=== PATIENT | female | born 1995 | race Caucasian/White ===

== ENCOUNTER → 2017-04-13 | Outpatient (CLI) | payer OTHER ==
[~2017-04-13] MED LIST: ACETGRA; ADVAIR; ALBU17IN2; CLINDAMYCIN 75 MG/5 ML; IBUP600T; KEFL500C17 PO; NORCOTAB PO; SING4CHW7
[2017-04-13 19:11] LABS: BASO % 0.2 % (0.0-1.0); EOS % 0.6 % (0.0-3.0); LARGE UNSTAINED CELL # 0.1 K/mm3 (0.0-0.4); LARGE UNSTAINED CELL % 0.6 % (0.0-4.0); LYMPH # 1.5 K/mm3 (1.5-6.5); MEAN CORPUSCULAR HEMOGLOBIN 29.3 pg (27.0-33.0); MEAN CORPUSCULAR HGB CONC 33.3 g/dl (32.0-36.5); MEAN CORPUSCULAR VOLUME 88.1 fl (80.0-96.0); MONO # 0.3 K/mm3 (0.0-0.8); MONO % 3.2 % (0.0-5.0); NEUTROPHILS # 7.4 K/mm3 (1.8-7.7); NEUTROPHILS % 79.4 % (36.0-66.0); PLATELET COUNT, AUTOMATED 285 k/mm3 (150-450); RED CELL DISTRIBUTION WIDTH 14.5 % (11.5-14.5); WHITE BLOOD COUNT 9.4 K/mm3 (4.0-10.0)
[2017-04-14 11:55] LABS: HBsAg Prenatal NEGATIVE (NEGATIVE)
== END ==
LOC: M SMT 13:36
PROVIDERS: ATTEND Advanced Practice Midwife
DX: Z34.82 Encounter for supervision of other normal pregnancy, second trimester (principal)

== ENCOUNTER → 2017-05-05 | Outpatient (CLI) | payer OTHER ==
[2017-05-05 13:18] LABS: BASO % 0.3 % (0.0-1.0); EOS % 0.5 % (0.0-3.0); LARGE UNSTAINED CELL # 0.1 K/mm3 (0.0-0.4); LARGE UNSTAINED CELL % 0.9 % (0.0-4.0); LYMPH # 1.9 K/mm3 (1.5-6.5); LYMPH % 20.5 % (24.0-44.0); MEAN CORPUSCULAR HEMOGLOBIN 29.7 pg (27.0-33.0); MEAN CORPUSCULAR HGB CONC 33.9 g/dl (32.0-36.5); MEAN CORPUSCULAR VOLUME 87.7 fl (80.0-96.0); MONO # 0.4 K/mm3 (0.0-0.8); NEUTROPHILS # 6.7 K/mm3 (1.8-7.7); NEUTROPHILS % 73.8 % (36.0-66.0); PLATELET COUNT, AUTOMATED 265 k/mm3 (150-450); RED CELL DISTRIBUTION WIDTH 14.5 % (11.5-14.5); WHITE BLOOD COUNT 9.1 K/mm3 (4.0-10.0)
--- NOTE | 2017-05-05 16:57 | REP ---
Obstetric sonography: History: Supervision of for anatomy. Findings: Scanning through the gravid uterus demonstrates a viable single intrauterine gestation in a breech lie. motion is observed and heart rate is recorder 147 beats per minute. Posterior grade zero placenta is seen without evidence of previa or abruption. Amniotic fluid is subjectively normal. Closed cervical length is 3.4 cm. No extrauterine abnormality is observed. No anomaly is seen. Left ventricular cardiac outflow tract view and spine views are less than optimal due to position. The following additional anatomic structures are identified and felt to be sonographically unremarkable: cranium, choroid plexus, cavum, cerebellum posterior fossa, face and profile, lungs, four-chamber heart with right ventricular outflow tract view, diaphragm, left-sided stomach, abdominal wall cord insertion, three-vessel umbilical cord, kidneys and bladder, upper and lower extremities. Biometry chart: BPD 5.7 cm 23 weeks 3 days Head circumference 22.1 cm 24 weeks 1 day Abdominal circumference 21.0 cm 25 weeks 4 days Femur length 4.6 cm 25 weeks 0 days Humeral length 4.3 cm 25 weeks 4 days Cerebellar diameter 2.6 cm 23 weeks 3 days HC/AC ratio normal 1.06, cephalic index normal 0.69, estimated weight 769 grams 1 pound 11 ounces 68th percentile for 24 weeks 2 days. Impression: Viable single intrauterine gestation at 24 weeks 2 days by today's composite criteria. WALLY by today's sonography 08/23/2017. cardiac left ventricular outflow tract view and spine views less than optimally achieved today due to position. Breech lie. Signed by Dong Lowry MD 05/05/2017 05:12 P
== END ==
LOC: M SMT 08:20
PROVIDERS: ATTEND Advanced Practice Midwife
DX: Z34.82 Encounter for supervision of other normal pregnancy, second trimester (principal); Z3A.24 24 weeks gestation of pregnancy

== ENCOUNTER 2017-05-29 23:24 | Emergency (ER) | payer OTHER ==
[~2017-05-29] VITALS: Ht 165.1 cm; Wt 95.5 kg
[~2017-05-29 23:24] MED LIST changes: -KEFL500C17 PO; -NORCOTAB PO
[2017-05-30 00:39] VITALS: BP 136/69
[2017-05-30] MEDS ORDERED: NORCO, ANEXSIA 5/325MG TABLET (HYDROcodone/ACETAMINOPHEN) PO ONE (00:45)
[2017-05-30] MEDS ORDERED: KEFL500C17 PO (00:58)
[2017-05-30] MEDS ORDERED: NORCOTAB PO (00:58)
[2017-05-30] MEDS ORDERED: CEPHALEXIN 500 MG CAP PO ONE (01:00)
== END 2017-05-30 01:06 | disposition home or self-care (01) ==
LOC: M ED 23:24
DX: O99.89 Other specified diseases and conditions complicating pregnancy, childbirth and the puerperium (principal); K04.7 Periapical abscess without sinus; F41.9 Anxiety disorder, unspecified; F32.9 Major depressive disorder, single episode, unspecified; J45.909 Unspecified asthma, uncomplicated; Z3A.24 24 weeks gestation of pregnancy; Z87.891 Personal history of nicotine dependence; Z88.0 Allergy status to penicillin

== ENCOUNTER 2017-08-02 17:04 | Outpatient (CLI) | payer OTHER ==
[~2017-08-02 17:04] MED LIST changes: +KEFL500C17 PO; +NORCOTAB PO
[2017-08-02 17:32] VITALS: BP 103/60
--- NOTE | 2017-08-02 18:54 | IPNPDOC ---
Text Note Date of Service The patient was seen on 08/02/17. NOTE 21 yo at 36 6/7 weeks gestation arrived to L and D with complaints of decreased movement since last night and leaking of fluid times one at 1600 when she went to the bathroom.Patient reports back pain to her tailbone that she has had throughout the entire . 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 Last ate a bagel at 1200, had one water bottle today. Denies bleeding. Patient states she has felt the baby move since she has been on the floor. O: VSS FHR: 140, moderate variability, + accels, + variables CTX: Infrequent irregular contractions SSE: - pooling, -nitrazine, - ferning SVE: Very posterior, unable to assess due to maternal guarding A: 36 6/7 weeks gestation. Not in labor. Category 1 tracing. P: Patient able to be discharged home, encouraged to keep appt this , edu on proper nutrition, FKC, supportive shoes, maternity belt, chiropractor, increase fluids. Susi Kwong CNM Aug 02, 2017 18:54
== END 2017-08-02 18:55 | disposition home or self-care (01) ==
LOC: M LDO 17:04
PROVIDERS: ATTEND Advanced Practice Midwife
DX: O26.893 Other specified pregnancy related conditions, third trimester (principal); Z3A.36 36 weeks gestation of pregnancy; N89.8 Other specified noninflammatory disorders of vagina; M54.5 Low back pain; Z88.0 Allergy status to penicillin

== ENCOUNTER 2017-08-23 15:22 | Inpatient (IN) | payer MEDICAID, OTHER ==
[~2017-08-23] VITALS: Ht 157.5 cm; Wt 101.0 kg
[2017-08-23 15:38] VITALS: BP 124/74
[2017-08-23] MEDS ORDERED: PRENTAB9 PO (16:32)
[2017-08-23 17:04] VITALS: BP 109/57
[2017-08-23] MEDS: miSOPROStol 50 MCG 1/2 TAB (S0191) PO SCH ×2 (17:05→21:06)
[2017-08-23 17:07] LABS: MEAN CORPUSCULAR HEMOGLOBIN 26.4 pg (27.0-33.0); MEAN CORPUSCULAR HGB CONC 31.8 g/dl (32.0-36.5); MEAN CORPUSCULAR VOLUME 83.1 fl (80.0-96.0); PLATELET COUNT, AUTOMATED 281 10^3/uL (150-450); RED CELL DISTRIBUTION WIDTH 15.8 % (11.5-14.5); WHITE BLOOD COUNT 11.3 10^3/uL (4.0-10.0)
--- NOTE | 2017-08-23 17:43 | HPE ---
DATE OF ADMISSION: 08/23/2017 HISTORY: A 22-year-old G2, P1 female at 39-6/7 weeks gestation by 14-week ultrasound, estimated date of confinement (EDC) of 08/24/2017, presents for elective induction of labor. She has contractions about every 10 minutes. She denies vaginal bleeding. COURSE: The patient initiated care at 17 weeks gestation on 03/19/2017. Her blood pressure is 124/74, weight 197 pounds. course was essentially unremarkable. OBSTETRICAL HISTORY: July 2016, a 39-plus week vaginal delivery of an 8-pound 3-ounce male . Patient had some sort of allergic reaction during delivery. It was unknown as to what caused it. MEDICAL HISTORY: Depression after last delivery. SURGICAL HISTORY: None. ALLERGIES: Uncertain etiology. SOCIAL HISTORY: The father of the baby is involved with the patient and lives in [place], [place]. Denies cigarettes, alcohol, or drug use during . FAMILY HISTORY: Noncontributory. PHYSICAL EXAMINATION:: Blood pressure 124/74, pulse 84. She is in no apparent distress. Head exam normal. Lungs clear. Heart regular rate and rhythm. Abdomen nontender, gravid. heart tones, category 1 contractions every 5-10 minutes. Sterile vaginal exam: 1-2 cm, 50%, -2 station, vertex. LABORATORY DATA: Blood type O positive, Rubella immune, RPR nonreactive, hepatitis B and C negative, HIV negative. GBS positive on 08/02/2017 ASSESSMENT: A 22-year-old G2, P1 female at 39-6/7 weeks gestation presents for labor induction. Risks of induction were discussed. Patient was admitted on 08/23/2017.
[2017-08-23 18:18] VITALS: BP 110/57
[2017-08-23 19:13] VITALS: BP 108/59
[2017-08-23 21:08] VITALS: BP 102/59
[2017-08-23] MEDS ORDERED: OXYTOCIN DRIP 30 UNITS in APPROPRIATE DILUENT 1 EA IV SCH (22:30)
[2017-08-23] MEDS: LR 1,000 ML IV SCH (23:04)
[2017-08-24] VITALS (38 sets, daily range): BP systolic 86–144; BP diastolic 49–70
[2017-08-24] MEDS ORDERED: FENTANYL 2MCG/ML ROPIVACAINE 0.2% IN 0.9% NACL 200ML IVBAG As Ordered ONE (03:07)
[2017-08-24] MEDS ORDERED: FENTANYL/ROPIVACAINE/NACL BAG 200 ML EPIDURAL SCH (04:15)
[2017-08-24] MEDS ORDERED: NALOXONE INJ 0.4 MG/1 ML VIAL (J2310) IV PRN (04:15)
[2017-08-24] MEDS ORDERED: diphenhydrAMINE INJ 50MG/ML VIAL (J1200) IV PRN (04:15)
[2017-08-24] MEDS ORDERED: EPIDURAL/PCA KEYS XX PRN (04:15)
[2017-08-24] MEDS ORDERED: LACTATED RINGER'S 1000 ML IV PRN (04:15)
[2017-08-24] MEDS ORDERED: REFRIGERATOR IV KEYS XX PRN (04:15)
[2017-08-24] MEDS ORDERED: ONDANSETRON 4MG/2ML VIAL (J2405) IV PRN (04:15)
[2017-08-24] MEDS ORDERED: EPIDURAL COMMENT XX SCH (04:15)
[2017-08-24] MEDS: ePHEDrine SULFATE 25 MG/5 ML(5MG/ML) SYRINGE IV PRN ×3 (04:36→05:02)
[2017-08-24] MEDS: LR 1,000 ML IV SCH (06:29)
[2017-08-24] MEDS ORDERED: CEFAZOLIN SOD 1 GM in APPROPRIATE DILUENT 1 EA IV SCH (06:30)
--- NOTE | 2017-08-24 08:21 | DNPDOC ---
[facility] Delivery Note Delivery Note DATE OF DELIVERY: 08/24/2017 PREDELIVERY DIAGNOSIS: 40-0/7 weeks' gestation and labor. POST DELIVERY DIAGNOSIS: Delivered. PROCEDURE: Vaginal delivery. CHIEF ENGINEER [employer]: Rich Kwong CNM. Benedict Agrawal, DEEPAME-2. ANESTHESIA: Epidural. ESTIMATED BLOOD LOSS: 300 mL. FINDINGS: 8 pound 9 ounce male infant, Score 8/9, no nuchal cord. DELIVERY SUMMARY: Patient is a 22-year-old 2 now para 2-0-0-2 who was admitted to labor and delivery for social induction at 0730 hours on 2016. Patient was positive for group B strep and received Ancef at 2300 and 0645. Patient received misoprostol and Pitocin to assist with delivery. Went into labor at 0300 hour. This spontaneous rupture membranes at 0540. Viable male child delivered at 0730 with MARCELLUS presentation. Anterior shoulder delivered followed by posterior. No shoulder dystocia. No nuchal cord. was warmed and dried and placed on mother's abdomen. Cord was double clamped and cut by father of the by my direction , three-vessel cord was noted. Apgars 8 and 9. weight 8 lbs. 9 oz, 3890 g. Short cord was noted. Placenta delivered at approximately 0737. Fundus was firm and massaged. IV Pitocin bolus was started. Perineum was noted to have a small mucosal laceration. Repaired at 0754 with one 3-0 running suture. Estimated blood loss 300 mL. A sponge, sharp and instrument count was performed and correct. GME ATTESTATION GME ATTESTATION My faculty preceptor for this patient encounter was physically present during the encounter and was fully available. All aspects of the patient interview, examination, medical decision making process, and medical care plan development were reviewed and approved by the faculty preceptor. The faculty preceptor is aware and concurs with the plan as stated in the body of this note and will attest to such by his/her cosignature. BENEDICT AGRAWAL DO Aug 24, 2017 08:21 Susi Kwong CNM Aug 24, 2017 09:27
[2017-08-24] MEDS ORDERED: METHYLERGONOVINE MALEATE 0.2 MG TAB PO PRN (08:30)
[2017-08-24] MEDS ORDERED: DIBUCAINE 1% OINTMENT 30GM TOP PRN (08:30)
[2017-08-24] MEDS ORDERED: DOCUSATE SODIUM 100 MG CAP PO PRN (08:30)
[2017-08-24] MEDS ORDERED: MEASLES,MUMPS,RUBELLA VACCINE INJ (MMR-II) (90707) SC SCH (08:30)
[2017-08-24] MEDS ORDERED: RHOGAM 300 MCG (1500 IU) INJ (J2790) IM SCH (08:30)
[2017-08-24] MEDS: ACETAMINOPHEN 500 MG TAB PO PRN ×2 (08:31→18:17)
[2017-08-24] MEDS ORDERED: PRENATAL VITAMINS CHEWABLE TABLET PO SCH (09:00)
[2017-08-24] MEDS: SERTRALINE HCL 50 MG TAB PO SCH (09:00)
[2017-08-24] MEDS: PRENATAL VITAMINS CHEWABLE TABLET PO SCH (09:00)
[2017-08-24] MEDS ORDERED: OXYTOCIN DRIP 30 UNITS in APPROPRIATE DILUENT 1 EA IV SCH (09:26)
[2017-08-24] MEDS: IBUPROFEN 800 MG TAB PO PRN ×2 (12:12→19:54)
[2017-08-24] MEDS ORDERED: ACETAMINOPHEN 500 MG TAB As Ordered ONE (18:18)
[2017-08-25] MEDS: ACETAMINOPHEN 500 MG TAB PO PRN ×2 (00:29→12:06)
[2017-08-25] MEDS: IBUPROFEN 800 MG TAB PO PRN ×3 (05:20→21:00)
[2017-08-25 06:00] VITALS: BP 114/78
--- NOTE | 2017-08-25 06:41 | IPNPDOC ---
Text Note Date of Service The patient was seen on 08/25/17. NOTE Feels well. Bottle feeding. Voiding QS 97.8, 114/78 Breasts soft Fundus firm, NT, down 1 FB Lochia rubra light without odor Perineum well approximated without edema Legs negative. PPD #1 Routine care. Anticipate D/C in am VS,Fishbone, I+O VS, Fishbone, I+O Vital Signs Date Time Temp Pulse Resp B/P (MAP) Pulse Ox O2 Delivery O2 Flow Rate FiO2 08/25/17 06:00 97.8 80 20 114/78 (90) 99 Room Air I&O- Last 24 Hours up to 6 AM 08/25/17 06:00 Intake Total 3590.15 ml Output Total 1100 ml Balance 2490.15 ml Susi Kwong CNM Aug 25, 2017 06:41
[2017-08-25] MEDS: PRENATAL VITAMINS CHEWABLE TABLET PO SCH (07:53)
[2017-08-25] MEDS: SERTRALINE HCL 50 MG TAB PO SCH (07:53)
[2017-08-25 18:00] VITALS: BP 114/68
[2017-08-25 21:00] VITALS: BP 114/68
[2017-08-26] MEDS: ACETAMINOPHEN 500 MG TAB PO PRN (01:43)
[2017-08-26 05:57] VITALS: BP 105/67
[2017-08-26] MEDS: PRENATAL VITAMINS CHEWABLE TABLET PO SCH (08:00)
[2017-08-26] MEDS: SERTRALINE HCL 50 MG TAB PO SCH (08:00)
[2017-08-26] MEDS ORDERED: ACET50TA PO (12:16)
[2017-08-26] MEDS ORDERED: ZOLO50TA PO (12:16)
[2017-08-26] MEDS ORDERED: IBUP-1114 PO (12:16)
[2017-08-26] MEDS: IBUPROFEN 800 MG TAB PO PRN (13:18)
== END 2017-08-26 13:30 | disposition home or self-care (01) | DRG 560 ==
LOC: M LDI 15:22 → M OBS 08-24 10:10
PROVIDERS: ADMIT Specialist; ATTEND Specialist
PROC: 10E0XZZ Delivery of Products of Conception, External Approach (ICD-10-PCS; principal; 2017-08-24)
PROC: 0HQ9XZZ Repair Perineum Skin, External Approach (ICD-10-PCS; 2017-08-24)
DX: O99.824 Streptococcus B carrier state complicating childbirth (principal); Z37.0 Single live birth; Z3A.39 39 weeks gestation of pregnancy; O70.0 First degree perineal laceration during delivery

== ENCOUNTER 2018-07-01 17:53 | Emergency (ER) | payer OTHER, MEDICAID, SELFPAY ==
[2018-07-01] MEDS: LIDOCAINE VISCOUS 2% SOLN 15ML UDC MT (18:30)
== END 2018-07-01 18:35 | disposition home or self-care (01) ==
LOC: M ED 17:53
DX: K08.89 Other specified disorders of teeth and supporting structures (principal); J45.909 Unspecified asthma, uncomplicated; F31.9 Bipolar disorder, unspecified; F17.200 Nicotine dependence, unspecified, uncomplicated; Z88.0 Allergy status to penicillin; Z79.899 Other long term (current) drug therapy
CPT/HCPCS: 99282

== ENCOUNTER 2018-07-19 13:22 | Emergency (ER) | payer OTHER ==
[2018-07-19] MEDS: NS 1,000 ML IV (14:53)
[2018-07-19 15:14] LABS: BASO % 0.2 % (0.0-1.0); EOS % 0.2 % (0.0-3.0); HEMATOCRIT 45.7 % (36.0-47.0); HEMOGLOBIN 15.4 g/dl (12.0-15.5); IMMATURE GRANULOCYTE % 0.4 % (0-3.0); LYMPH # 2.6 10^3/uL (1.5-6.5); MEAN CORPUSCULAR HEMOGLOBIN 29.9 pg (27.0-33.0); MEAN CORPUSCULAR HGB CONC 33.7 g/dl (32.0-36.5); MEAN CORPUSCULAR VOLUME 88.7 fl (80.0-96.0); MONO % 6.4 % (0.0-5.0); NEUTROPHILS # 11.7 10^3/uL (1.8-7.7); NEUTROPHILS % 75.8 % (36.0-66.0); PLATELET COUNT, AUTOMATED 265 10^3/uL (150-450); RED BLOOD COUNT 5.15 10^6/uL (4.00-5.40); RED CELL DISTRIBUTION WIDTH 13.2 % (11.5-14.5); WHITE BLOOD COUNT 15.4 10^3/uL (4.0-10.0)
[2018-07-19] MEDS: GI COCKTAIL 50ML BTL(HYOSCYAMINE/MAALOX/LIDOCAINE VISCOUS)(1:3:1) PO (15:17)
[2018-07-19] MEDS: ASPIRIN 81 MG CHEW TABLET PO (15:17)
[2018-07-19 15:25] LABS: PROTHROMBIN TIME 14.4 SECONDS (12.1-14.4)
[2018-07-19 15:52] LABS: ALBUMIN 3.9 GM/DL (3.2-5.2); ALBUMIN/GLOBULIN RATIO 0.93 (1.00-1.93); ALKALINE PHOSPHATASE 132 U/L (45-117); ALT/SGPT 25 U/L (12-78); ANION GAP 9 MEQ/L (8-16); AST/SGOT 41 U/L (7-37); BILIRUBIN,DIRECT < 0.1 MG/DL (0.0-0.2); BILIRUBIN,TOTAL 0.8 MG/DL (0.2-1.0); BLOOD UREA NITROGEN 12 MG/DL (7-18); CALCIUM LEVEL 9.1 MG/DL (8.5-10.1); CARBON DIOXIDE LEVEL 23 MEQ/L (21-32); CHLORIDE LEVEL 103 MEQ/L (98-107); CK-MB VALUE MASS < 1.0 NG/ML (<3.6); CPK CREATINE PHOSPHOKINASE 185 U/L (26-192); CREATININE FOR GFR 0.74 MG/DL (0.55-1.30); GLOMERULAR FILTRATION RATE > 60.0 (>60); GLUCOSE, FASTING 75 MG/DL (70-100); LIPASE 60 U/L (73-393); MB/CK RELATIVE INDEX 0.54 (< OR =4); POTASSIUM SERUM 5.4 MEQ/L (3.5-5.1); SODIUM LEVEL 135 MEQ/L (136-145); THYROID STIMULATING HORMONE 0.554 uIU/ML (0.358-3.740); TOTAL PROTEIN 8.1 GM/DL (6.4-8.2); TROPONIN I < 0.02 NG/ML (< 0.10)
== END 2018-07-19 16:10 | disposition home or self-care (01) ==
LOC: M ED 13:22
DX: R07.89 Other chest pain (principal); R06.02 Shortness of breath; Z88.0 Allergy status to penicillin; Z79.899 Other long term (current) drug therapy
CPT/HCPCS: 71046

== ENCOUNTER 2019-03-11 16:07 | Emergency (ER) | payer OTHER ==
[~2019-03-11] VITALS: Ht 157.5 cm; Wt 95.5 kg
[~2019-03-11 16:07] MED LIST changes: +CITA20TA7 PO; +CLEO300C2 PO; +HYDR-3715 PO; +IBUP-1114 PO; +LATU40TA PO; +MAPA500T2 PO; -NORCOTAB PO; +PRENTAB9 PO; +ZOLO50TA PO
[2019-03-11] MEDS ORDERED: CYCLOBENZAPRINE 5MG TABLET PO ONE (16:45)
[2019-03-11] MEDS: KETOROLAC 30 MG/ML VIAL (J1885) IM ONE ×2 (16:50→16:53)
[2019-03-11] MEDS ORDERED: BACL10TA2 PO (17:28)
[2019-03-11] MEDS ORDERED: IBUPROFEN 600 MG TAB PO ONE (17:30)
[2019-03-11 17:38] VITALS: BP 131/74
== END 2019-03-11 17:38 | disposition home or self-care (01) ==
LOC: M ED 16:07
DX: S29.012A Strain of muscle and tendon of back wall of thorax, initial encounter (principal); X58.XXXA Exposure to other specified factors, initial encounter; Y92.89 Other specified places as the place of occurrence of the external cause; M54.31 Sciatica, right side; J45.909 Unspecified asthma, uncomplicated; F31.9 Bipolar disorder, unspecified; Z79.899 Other long term (current) drug therapy; Z88.0 Allergy status to penicillin; F17.210 Nicotine dependence, cigarettes, uncomplicated

== ENCOUNTER 2019-03-17 16:25 | Emergency (ER) | payer OTHER ==
[~2019-03-17] VITALS: Ht 157.5 cm; Wt 95.5 kg
[~2019-03-17 16:25] MED LIST changes: +BACL10TA2 PO
[2019-03-17 16:52] LABS: BASO # 0.1 10^3/uL (0.0-0.2); BASO % 0.3 % (0.0-1.0); EOS # 0.1 10^3/uL (0.0-0.50); EOS % 0.3 % (0.0-3.0); HEMATOCRIT 46.4 % (36.0-47.0); HEMOGLOBIN 15.8 g/dl (12.0-15.5); LYMPH # 1.3 10^3/uL (1.5-6.5); LYMPH % 7.6 % (24.0-44.0); MEAN CORPUSCULAR HEMOGLOBIN 31.3 pg (27.0-33.0); MEAN CORPUSCULAR HGB CONC 34.1 g/dl (32.0-36.5); MEAN CORPUSCULAR VOLUME 91.9 fl (80.0-96.0); MONO # 0.7 10^3/uL (0.0-0.8); MONO % 4.3 % (0.0-5.0); NEUTROPHILS # 14.4 10^3/uL (1.8-7.7); NEUTROPHILS % 87.2 % (36.0-66.0); PLATELET COUNT, AUTOMATED 280 10^3/uL (150-450); RED BLOOD COUNT 5.05 10^6/uL (4.00-5.40); WHITE BLOOD COUNT 16.5 10^3/uL (4.0-10.0)
[2019-03-17 17:13] LABS: ALBUMIN 3.9 GM/DL (3.2-5.2); ALT/SGPT 18 U/L (12-78); BILIRUBIN,DIRECT < 0.1 MG/DL (0.0-0.2); BILIRUBIN,TOTAL 0.2 MG/DL (0.2-1.0); LIPASE 81 U/L (73-393); TOTAL PROTEIN 7.4 GM/DL (6.4-8.2)
[2019-03-17] MEDS ORDERED: NS 1,000 ML IV ONE ×2 (17:45→20:30)
[2019-03-17] MEDS ORDERED: MORPHINE 4 MG/ML 1ML VIAL/SYRINGE (J2270) IV ONE (17:45)
[2019-03-17] MEDS ORDERED: ONDANSETRON 4MG/2ML VIAL (J2405) IV ONE (17:45)
[2019-03-17 17:55] LABS: BLOOD UREA NITROGEN 11 MG/DL (7-18); CALCIUM LEVEL 8.5 MG/DL (8.5-10.1); CARBON DIOXIDE LEVEL 22 MEQ/L (21-32); CHLORIDE LEVEL 107 MEQ/L (98-107); CREATININE FOR GFR 0.68 MG/DL (0.55-1.30); GLOMERULAR FILTRATION RATE > 60.0 (>60); GLUCOSE, FASTING 112 MG/DL (70-100); POTASSIUM SERUM 4.1 MEQ/L (3.5-5.1); SODIUM LEVEL 139 MEQ/L (136-145)
[2019-03-17] MEDS ORDERED: ISOVUE-370 76% 100ML VIAL (Q9967) As Ordered ONE (17:58)
--- NOTE | 2019-03-17 18:48 | REPVR ---
EXAM: CT Abdomen and Pelvis With Contrast EXAM DATE/TIME: 03/17/2019 6:09 PM CLINICAL HISTORY: 23 years old, female; Abdominal pain; Localized; Right lower quadrant (rlq); Additional info: Rlq pain TECHNIQUE: Imaging protocol: Axial computed tomography images of the abdomen and pelvis with intravenous contrast. Coronal and sagittal reformatted images were created and reviewed. Radiation optimization: All CT scans at this facility use at least one of these dose optimization techniques: automated exposure control; mA and/or kV adjustment per patient size (includes targeted exams where dose is matched to clinical indication); or iterative reconstruction. Contrast material: ISOVUE 370; Contrast volume: 100 ml; Contrast route: IV; COMPARISON: US OBS FOLL UP OR REPEAT EACH GES 07/08/2017 3:06 PM FINDINGS: Mediastinum: Small hiatal hernia. Liver: Mild hepatomegaly. Gallbladder and bile ducts: No radiodense gallstones. No biliary ductal dilatation. Pancreas: Unremarkable. Spleen: Unremarkable. Adrenals: Unremarkable. Kidneys and ureters: No mass. No radiodense calculi. No hydronephrosis. Stomach and bowel: Underdistention versus mild wall thickening of the right colon. No obstruction. No pneumatosis. Appendix: Normal. Intraperitoneal space: Trace nonspecific free pelvic fluid, likely physiologic. No organized fluid collection. No free air. Vasculature: Unremarkable. No aneurysm. Lymph nodes: Small mesenteric lymph nodes, some of which are clustered along the right psoas musculature. No pathologically enlarged lymph nodes. Bladder: Unremarkable. Reproductive: Unremarkable. Bones/joints: No acute osseous abnormality. Mild degenerative changes. Bilateral L5 pars defects. Soft tissues: Unremarkable. IMPRESSION: 1. Underdistention versus mild wall thickening of the right colon. Mild nonspecific colitis cannot be excluded. 2. Small mesenteric lymph nodes, some of which are clustered along the right psoas musculature, possibly reactive. Mesenteric adenitis could produce a similar appearance. 3. Additional findings, as above. Electronically signed by: Tanner Burns On 03/17/2019 18:47:57 PM
[2019-03-17] MEDS ORDERED: metroNIDAZOLE 500 MG in APPROPRIATE DILUENT 1 EA IV ONE (19:15)
[2019-03-17] MEDS ORDERED: CIPROFLOXACIN 400 MG in APPROPRIATE DILUENT 1 EA IV ONE (19:15)
[2019-03-17] MEDS ORDERED: ACETAMINOPHEN 325 MG TAB PO ONE (20:30)
[2019-03-17 22:00] VITALS: BP 101/56
[2019-03-17] MEDS ORDERED: FLAG500T PO (22:25)
[2019-03-17] MEDS ORDERED: ZOFR4TAB16 PO (22:25)
[2019-03-17] MEDS ORDERED: CIPR-249 PO (22:25)
== END 2019-03-17 22:40 | disposition home or self-care (01) ==
LOC: M ED 16:25
DX: K52.9 Noninfective gastroenteritis and colitis, unspecified (principal); E86.0 Dehydration; J45.909 Unspecified asthma, uncomplicated; F31.9 Bipolar disorder, unspecified; Z79.899 Other long term (current) drug therapy; Z88.0 Allergy status to penicillin; F17.210 Nicotine dependence, cigarettes, uncomplicated
CPT/HCPCS: 36415; 74177; 80047; 80048; 80076; 83605; 83690; 84702; 85025; 87040; 93041; 96374; 96375; 99284; J0744; J2270; J2405; Q9967

== ENCOUNTER 2019-05-08 13:54 | Emergency (ER) | payer OTHER ==
[~2019-05-08] VITALS: Ht 157.5 cm; Wt 102.8 kg
[2019-05-08 13:54] VITALS: BP 143/85
[~2019-05-08 13:54] MED LIST changes: +CIPR-249 PO; +FLAG500T PO; +ZOFR4TAB16 PO
[2019-05-08] MEDS ORDERED: HYDR-3716 (14:05)
[2019-05-08] MEDS ORDERED: IBUP80TA (14:05)
[2019-05-08] MEDS ORDERED: CLIN150C14 (14:05)
[2019-05-08] MEDS ORDERED: IBUP-1022 PO (15:06)
[2019-05-08] MEDS ORDERED: IBUPROFEN 600 MG TAB PO ONE (15:15)
[2019-05-08] MEDS ORDERED: ANEXSIA, NORCO 7.5MG/325MG TABLET(HYDROCODONE/APAP) PO ONE (15:15)
== END 2019-05-08 15:17 | disposition home or self-care (01) ==
LOC: M ED 13:54
DX: G89.18 Other acute postprocedural pain (principal); J45.909 Unspecified asthma, uncomplicated; Z79.899 Other long term (current) drug therapy; Z88.0 Allergy status to penicillin

== ENCOUNTER → 2019-12-07 | Outpatient (REF) | payer OTHER ==
[~2019-12-07] MED LIST changes: +CLIN150C14; +HYDR-3716; +IBUP-1022 PO; +IBUP80TA
[2019-12-07 18:07] LABS: BASO % 0.4 % (0.0-1.0); EOS # 0.3 10^3/uL (0.0-0.5); EOS % 2.6 % (0.0-3.0); HEMATOCRIT 45.3 % (36.0-47.0); HEMOGLOBIN 14.6 g/dl (12.0-15.5); LYMPH # 2.7 10^3/uL (1.5-5.0); LYMPH % 28.3 % (24.0-44.0); MEAN CORPUSCULAR HGB CONC 32.2 g/dl (32.0-36.5); MEAN CORPUSCULAR VOLUME 90.1 fl (80.0-96.0); MONO # 0.5 10^3/uL (0.0-0.8); MONO % 4.9 % (0.0-5.0); NEUTROPHILS # 6.1 10^3/uL (1.5-8.5); NEUTROPHILS % 63.4 % (36.0-66.0); PLATELET COUNT, AUTOMATED 334 10^3/uL (150-450); RED BLOOD COUNT 5.03 10^6/uL (4.00-5.40); WHITE BLOOD COUNT 9.6 10^3/uL (4.0-10.0)
[2019-12-07 18:16] LABS: ALBUMIN 4.1 GM/DL (3.2-5.2); ALT/SGPT 28 U/L (12-78); BILIRUBIN,TOTAL 0.3 MG/DL (0.2-1.0); BLOOD UREA NITROGEN 13 MG/DL (7-18); CARBON DIOXIDE LEVEL 26 MEQ/L (21-32); CHLORIDE LEVEL 108 MEQ/L (98-107); CREATININE FOR GFR 0.57 MG/DL (0.55-1.30); FREE T4 1.06 NG/DL (0.76-1.46); GLOMERULAR FILTRATION RATE > 60.0 (>60); GLUCOSE, FASTING 78 MG/DL (70-100); POTASSIUM SERUM 4.2 MEQ/L (3.5-5.1); SODIUM LEVEL 140 MEQ/L (136-145); THYROID STIMULATING HORMONE 0.596 uIU/ML (0.358-3.740); TOTAL PROTEIN 7.4 GM/DL (6.4-8.2)
[2019-12-07 18:35] LABS: HEMOGLOBIN A1c 5.7 %
== END ==
LOC: M SFHCPLAZ 14:35
PROVIDERS: ATTEND Nurse Practitioner Family
DX: R53.83 Other fatigue (principal); E66.01 Morbid (severe) obesity due to excess calories; F41.8 Other specified anxiety disorders; Z83.3 Family history of diabetes mellitus

== ENCOUNTER → 2020-08-12 | Outpatient (REF) | payer OTHER ==
[2020-08-12 17:47] LABS: HEMATOCRIT 42.6 % (36.0-47.0); HEMOGLOBIN 13.7 g/dl (12.0-15.5); MEAN CORPUSCULAR HEMOGLOBIN 29.4 pg (27.0-33.0); MEAN CORPUSCULAR HGB CONC 32.2 g/dl (32.0-36.5); MEAN CORPUSCULAR VOLUME 91.4 fl (80.0-96.0); PLATELET COUNT, AUTOMATED 307 10^3/uL (150-450); RED BLOOD COUNT 4.66 10^6/uL (4.00-5.40); WHITE BLOOD COUNT 9.7 10^3/uL (4.0-10.0)
[2020-08-12 17:55] LABS: FREE T4 1.15 NG/DL (0.76-1.46); THYROID STIMULATING HORMONE 0.738 uIU/ML (0.358-3.740)
[2020-08-12 18:01] LABS: TOTAL 25(OH) VITAMIN D 17.7 NG/ML (30.0-100.0)
[2020-08-12 18:23] LABS: HEMOGLOBIN A1c 5.2 %
== END ==
LOC: M SFHCPLAZ 13:21
PROVIDERS: ATTEND Nurse Practitioner Family
DX: F41.8 Other specified anxiety disorders (principal); R73.03 Prediabetes

== ENCOUNTER 2022-04-15 08:20 | Emergency (ER) | payer OTHER ==
[~2022-04-15] VITALS: Ht 160 cm; Wt 75.0 kg
[~2022-04-15 08:20] MED LIST changes: -CLIN150C14; +CLIN150C17; -LATU40TA PO; +LATU40TA2 PO
[2022-04-15] MEDS ORDERED: ACETAMINOPHEN 325 MG TAB PO ONE (08:40)
[2022-04-15 10:32] VITALS: BP 102/62
== END 2022-04-15 10:33 | disposition home or self-care (01) ==
LOC: M ED 08:20
DX: S83.91XA Sprain of unspecified site of right knee, initial encounter (principal); M25.561 Pain in right knee; W18.49XA Other slipping, tripping and stumbling without falling, initial encounter; Z88.0 Allergy status to penicillin

== ENCOUNTER → 2022-07-16 | Outpatient (CLI) | payer OTHER ==
[2022-07-16 16:17] LABS: BASO % 0.3 % (0.0-1.0); EOS # 0.2 10^3/uL (0.0-0.5); EOS % 2.2 % (0.0-3.0); HEMATOCRIT 42.9 % (36.0-47.0); LYMPH # 2.5 10^3/uL (1.5-5.0); LYMPH % 29.2 % (24.0-44.0); MEAN CORPUSCULAR HEMOGLOBIN 31.2 pg (27.0-33.0); MEAN CORPUSCULAR HGB CONC 32.6 g/dl (32.0-36.5); MEAN CORPUSCULAR VOLUME 95.5 fl (80.0-96.0); MONO # 0.4 10^3/uL (0.0-0.8); NEUTROPHILS # 5.4 10^3/uL (1.5-8.5); PLATELET COUNT, AUTOMATED 243 10^3/uL (150-450); RED BLOOD COUNT 4.49 10^6/uL (4.00-5.40); WHITE BLOOD COUNT 8.6 10^3/uL (4.0-10.0)
[2022-07-16 17:13] LABS: ALBUMIN 3.6 GM/DL (3.2-5.2); ALT/SGPT 18 U/L (12-78); BILIRUBIN,TOTAL 0.3 MG/DL (0.2-1.0); BLOOD UREA NITROGEN 13 MG/DL (7-18); CALCIUM LEVEL 8.5 MG/DL (8.5-10.1); CARBON DIOXIDE LEVEL 26 MEQ/L (21-32); CHLORIDE LEVEL 109 MEQ/L (98-107); CHOLESTEROL LEVEL 147 MG/DL (<200); CHOLESTEROL RISK RATIO 3.062 (<5); CREATININE FOR GFR 0.56 MG/DL (0.55-1.30); GLOMERULAR FILTRATION RATE > 60.0 (>60); GLUCOSE, FASTING 81 MG/DL (70-100); HDL CHOLESTEROL 48 MG/DL (>40); IRON (FE) 57 UG/DL (50-170); LDL CHOLESTEROL 86 MG/DL (<100); NON-HDL-C 99 MG/DL; PERCENT SATURATION 17.6 % (13.2-45.0); POTASSIUM SERUM 3.8 MEQ/L (3.5-5.1); SODIUM LEVEL 138 MEQ/L (136-145); THYROID STIMULATING HORMONE 0.927 uIU/ML (0.358-3.740); TOTAL IRON BINDING CAPACITY 324 UG/DL (250-450); TOTAL PROTEIN 6.5 GM/DL (6.4-8.2); TRIGLYCERIDES LEVEL 64 MG/DL (<150)
[2022-07-16 17:24] LABS: HEMOGLOBIN A1c 4.9 %
[2022-07-16 18:06] LABS: TOTAL 25(OH) VITAMIN D 18.6 NG/ML (30.0-100.0)
== END ==
LOC: M PLALAB 12:22
PROVIDERS: ATTEND Physician Assistant
DX: L65.9 Nonscarring hair loss, unspecified (principal); Z13.220 Encounter for screening for lipoid disorders; R73.03 Prediabetes; E55.9 Vitamin D deficiency, unspecified

== ENCOUNTER → 2022-07-29 | Outpatient (CLI) | payer OTHER | LOC: M WHC 13:45 | PROVIDERS: ATTEND Physician Assistant | DX: N64.4 Mastodynia (principal); Z80.3 Family history of malignant neoplasm of breast ==

== ENCOUNTER → 2023-11-10 | Outpatient (CLI) | payer OTHER ==
[2023-11-10 16:24] LABS: BASO % 0.4 % (0.0-1.0); EOS # 0.1 10^3/uL (0.0-0.5); EOS % 0.7 % (0.0-3.0); HEMATOCRIT 42.5 % (36.0-47.0); HEMOGLOBIN 14.4 g/dl (12.0-15.5); LYMPH # 2.3 10^3/uL (1.5-5.0); LYMPH % 20.4 % (24.0-44.0); MEAN CORPUSCULAR HEMOGLOBIN 31.7 pg (27.0-33.0); MEAN CORPUSCULAR HGB CONC 33.9 g/dl (32.0-36.5); MEAN CORPUSCULAR VOLUME 93.6 fl (80.0-96.0); MONO # 0.5 10^3/uL (0.0-0.8); MONO % 4.6 % (2.0-8.0); NEUTROPHILS # 8.1 10^3/uL (1.5-8.5); NEUTROPHILS % 73.5 % (36.0-66.0); PLATELET COUNT, AUTOMATED 258 10^3/uL (150-450); RED BLOOD COUNT 4.54 10^6/uL (4.00-5.40)
[2023-11-10 16:53] LABS: ALBUMIN 3.8 G/DL (3.2-5.2); ALKALINE PHOSPHATASE 77 U/L (46-116); ALT/SGPT 11 U/L (7.0-40); AST/SGOT < 8 U/L (<34); BILIRUBIN,TOTAL 0.3 MG/DL (0.3-1.2); BLOOD UREA NITROGEN 13 MG/DL (9-23); CALCIUM LEVEL 8.3 MG/DL (8.5-10.1); CARBON DIOXIDE LEVEL 28 MMOL/L (20-31); CHLORIDE LEVEL 109 MMOL/L (98-107); CHOLESTEROL LEVEL 154 MG/DL (<200); CHOLESTEROL RISK RATIO 3.25 (<5); CREATININE FOR GFR 0.73 MG/DL (0.55-1.30); GLOMERULAR FILTRATION RATE > 60.0 (>60); GLUCOSE, FASTING 65 MG/DL (60-100); HDL CHOLESTEROL 47.3 MG/DL (>40); IRON (FE) 73 UG/DL (50-170); LDL CHOLESTEROL 81.7 MG/DL (<100); NON-HDL-C 106.7 MG/DL; POTASSIUM SERUM 4.4 MMOL/L (3.5-5.1); SODIUM LEVEL 139 MMOL/L (136-145); THYROID STIMULATING HORMONE 0.645 uIU/ML (0.55-4.78); TOTAL PROTEIN 6.4 G/DL (5.7-8.2); TRIGLYCERIDES LEVEL 125 MG/DL (<150)
[2023-11-10 16:54] LABS: FERRITIN 126.1 NG/ML (7.3-270.7); FOLATE 22.67 NG/ML (>5.4); TOTAL 25(OH) VITAMIN D 21.4 NG/ML (20.0-100.0); VITAMIN B12 LEVEL 707 PG/ML (211-911)
== END ==
LOC: M PLALAB 14:33
PROVIDERS: ATTEND Physician Assistant
DX: Z00.00 Encounter for general adult medical examination without abnormal findings (principal); Z13.29 Encounter for screening for other suspected endocrine disorder; Z13.220 Encounter for screening for lipoid disorders

== ENCOUNTER → 2023-12-02 | Outpatient (CLI) | payer OTHER ==
[2023-12-02 15:33] LABS: BASO # 0.1 10^3/uL (0.0-0.2); BASO % 0.5 % (0.0-1.0); EOS # 0.1 10^3/uL (0.0-0.5); HEMATOCRIT 42.5 % (36.0-47.0); HEMOGLOBIN 14.5 g/dl (12.0-15.5); LYMPH # 3.3 10^3/uL (1.5-5.0); LYMPH % 28.5 % (24.0-44.0); MEAN CORPUSCULAR HEMOGLOBIN 31.9 pg (27.0-33.0); MEAN CORPUSCULAR HGB CONC 34.1 g/dl (32.0-36.5); MEAN CORPUSCULAR VOLUME 93.6 fl (80.0-96.0); MONO # 0.6 10^3/uL (0.0-0.8); MONO % 5.1 % (2.0-8.0); NEUTROPHILS # 7.4 10^3/uL (1.5-8.5); NEUTROPHILS % 64.6 % (36.0-66.0); PLATELET COUNT, AUTOMATED 252 10^3/uL (150-450); RED BLOOD COUNT 4.54 10^6/uL (4.00-5.40); WHITE BLOOD COUNT 11.5 10^3/uL (4.0-10.0)
[2023-12-02 16:08] LABS: ALBUMIN 3.8 G/DL (3.2-5.2); ALKALINE PHOSPHATASE 77 U/L (46-116); ALT/SGPT 14 U/L (7.0-40); AST/SGOT 9 U/L (<34); BILIRUBIN,TOTAL 0.5 MG/DL (0.3-1.2); BLOOD UREA NITROGEN 11 MG/DL (9-23); CALCIUM LEVEL 9.2 MG/DL (8.5-10.1); CARBON DIOXIDE LEVEL 26 MMOL/L (20-31); CHLORIDE LEVEL 108 MMOL/L (98-107); CREATININE FOR GFR 0.57 MG/DL (0.55-1.30); GLOMERULAR FILTRATION RATE > 60.0 (>60); GLUCOSE, FASTING 83 MG/DL (60-100); POTASSIUM SERUM 4.1 MMOL/L (3.5-5.1); PTH INTACT 58.1 PG/ML (18.5-88.0); SODIUM LEVEL 136 MMOL/L (136-145); TOTAL PROTEIN 6.6 G/DL (5.7-8.2)
[2023-12-02 16:11] LABS: HCG, SERUM QUALITATIVE NEGATIVE (NEGATIVE)
== END ==
LOC: M PLALAB 12:35
PROVIDERS: ATTEND Physician Assistant
DX: Z00.00 Encounter for general adult medical examination without abnormal findings (principal)

== ENCOUNTER → 2024-09-20 | Outpatient (CLI) | payer MEDICAID | LOC: M OUTALCOH 07:20 | PROVIDERS: ATTEND Psychiatry & Neurology Psychiatry | DX: F12.10 Cannabis abuse, uncomplicated (principal); Z72.0 Tobacco use ==

== ENCOUNTER → 2025-01-03 | Outpatient (CLI) | payer MEDICAID | LOC: M OUTALCOH 12:24 | PROVIDERS: ATTEND Psychiatry & Neurology Psychiatry | DX: F12.10 Cannabis abuse, uncomplicated (principal) ==